=== PATIENT | female | born 1945 | race Caucasian/White ===

== ENCOUNTER 2016-07-29 07:03 | Emergency (ER) | payer OTHER, MEDICARE ==
[~2016-07-29] VITALS: Ht 167.6 cm; Wt 63.0 kg
[~2016-07-29 07:03] MED LIST: CYCL5TAB PO
[2016-07-29 07:11] VITALS: BP 185/92; PULSE 75; RESP 16; TEMP 98; O2SAT 99
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
[2016-07-29] MEDS ORDERED: HYDR-3516 PO (09:37)
[2016-07-29] MEDS ORDERED: CYCL5TAB PO (09:37)
[2016-07-29] MEDS ORDERED: SYNT25TA PO (09:51)
== END 2016-07-29 09:59 | disposition home or self-care (01) ==
LOC: PHED 07:03
DX: M79.1 Myalgia (principal); V43.52XA Car driver injured in collision with other type car in traffic accident, initial encounter; Y93.9 Activity, unspecified; Y92.9 Unspecified place or not applicable; Y99.9 Unspecified external cause status
CPT/HCPCS: 71120; 72040; 72072; 72100; 99283

== ENCOUNTER 2017-05-13 08:48 | Emergency (ER) | payer MEDICARE ==
[~2017-05-13] VITALS: Ht 167.6 cm; Wt 62.2 kg
[~2017-05-13 08:48] MED LIST changes: +HYDR-3516 PO; +SYNT25TA PO
[2017-05-13 08:51] VITALS: BP 193/131; PULSE 74; RESP 16; TEMP 97.6; O2SAT 99
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
--- NOTE | 2017-05-13 10:43 | RADRPT ---
EXAM DATE/TIME: 05/13/2017 09:48 [facility] COMPARISON: No previous studies available for comparison. INDICATIONS : Fell, left hand pain MEDICAL HISTORY : None. SURGICAL HISTORY : None. ENCOUNTER: Initial ACUITY: 4 - 6 days PAIN SCORE: 7/10 LOCATION: Left hand FINDINGS: Degenerative changes first carpometacarpal joint. Alignment anatomic. The fracture is not appreciat ed. CONCLUSION: Degenerative changes, negative for fracture Merlin Diaz MD FACR on May 13, 2017 at 10:41 Board Certified Radiologist. This report was verified electronically.
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
--- NOTE | 2017-05-13 10:45 | RADRPT ---
EXAM DATE/TIME: 05/13/2017 10:05 [facility] COMPARISON: SHOULDER LEFT COMPLETE (>2VWS), August 18, 2015, 8:30. INDICATIONS : Fell, left shoulder pain with limited ROM MEDICAL HISTORY : None. SURGICAL HISTORY : None. ENCOUNTER: Initial ACUITY: 4 - 6 days PAIN SCORE: 8/10 LOCATION: Left shoulder FINDINGS: Osteopenia. Anatomic alignment. Probable fracture inferior glenoid. There is no rib fracture. CONCLUSION: Probable fracture inferior glenoid. Merlin Diaz MD FACR on May 13, 2017 at 10:43 Board Certified Radiologist. This report was verified electronically.
--- NOTE | 2017-05-13 10:46 | RADRPT ---
EXAM DATE/TIME: 05/13/2017 10:09 [facility] COMPARISON: No previous studies available for comparison. INDICATIONS : Fell, left knee pain MEDICAL HISTORY : None. SURGICAL HISTORY : None. ENCOUNTER: Initial ACUITY: 4 - 6 days PAIN SCORE: 7/10 LOCATION: Left knee FINDINGS: Four view examination of the left knee demonstrates no evidence of fracture or dislocation. Bony min eralization is normal. The articular surfaces are intact. The suprapatellar soft tissues have a nor mal configuration. CONCLUSION: Negative for fracture. Merlin Diaz MD FACR on May 13, 2017 at 10:44 Board Certified Radiologist. This report was verified electronically.
[2017-05-13] MEDS ORDERED: PRED20 PO (11:01)
[2017-05-13] MEDS ORDERED: AUGM875T3 PO (11:01)
[2017-05-13 11:26] VITALS: BP 149/85
== END 2017-05-13 11:29 | disposition home or self-care (01) ==
LOC: PHED 08:48
DX: S02.82XA Fracture of other specified skull and facial bones, left side, initial encounter for closed fracture (principal); S42.92XA Fracture of left shoulder girdle, part unspecified, initial encounter for closed fracture; W01.198A Fall on same level from slipping, tripping and stumbling with subsequent striking against other object, initial encounter; Y93.01 Activity, walking, marching and hiking; Y92.007 Garden or yard of unspecified non-institutional (private) residence as the place of occurrence of the external cause
CPT/HCPCS: 70450; 70486; 72110; 72125; 73030; 73130; 73564